=== PATIENT | male | born 1975 | race Hispanic/Latino ===

== ENCOUNTER → 2017-10-17 | Outpatient (CLI) | payer OTHER ==
--- NOTE | 2017-10-17 13:38 | Diagnostic Imaging Report ---
PROCEDURE:TESTICULAR ULTRASOUND COMPARISON:None. INDICATIONS:SPERMATOCELE OF EPIDIDYMIS TECHNIQUE:The scrotum was evaluated with frnaklin scale, color and spectral Doppler sonography. FINDINGS: TESTES: Right testicle measures 4.4 x 3.7 cm. Left testicle measures 5.8 x 3.1 x 3.7 cm. Normal appearance and flow. Normal arterial and venous spectral Doppler waveforms. EPIDIDYMIS: Negative. Right epididymal head measures 0.9 x 1 x 1.2 cm. Left epididymal head measures 0.9 x 1.9 x 1.8 cm. No cysts, spermatoceles, or masses are identified. OTHER: No hernia is visualized. CONCLUSION: Unremarkable scrotal ultrasound. Dictated by: Kem Nick M.D. on 10/17/2017 at 13:47 Electronically approved by: Kem Nick M.D. on 10/17/2017 at 13:47
--- NOTE | 2017-10-17 13:39 | Diagnostic Imaging Report ---
PROCEDURE:TESTICULAR DOPPLER ULTRASOUND COMPARISON:None. INDICATIONS:SPERMATOCELE OF EPIDIDYMIS TECHNIQUE:The scrotum was evaluated with franklin scale and color duplex Doppler sonography. FINDINGS: Please see same day testicular ultrasound for full report. CONCLUSION: Please see same day testicular ultrasound for full report. Dictated by: Kem Nick M.D. on 10/17/2017 at 13:48 Electronically approved by: Kem Nick M.D. on 10/17/2017 at 13:48
== END ==
LOC: US 11:17
PROVIDERS: ATTEND Urology
DX: N43.40 Spermatocele of epididymis, unspecified (principal)
CPT/HCPCS: 76870; 93976